=== PATIENT | male | born 1990 | race Caucasian/White ===

== ENCOUNTER 2025-01-08 07:44 | Emergency (ER) | payer SELFPAY ==
[~2025-01-08] VITALS: Ht 175.3 cm; Wt 84.1 kg
[~2025-01-08 07:44] MED LIST: NOCURR
[2025-01-08 07:46] VITALS: TEMP 97.9
[2025-01-08 08:19] LABS: BASOPHILS % (AUTO) 0.5 % (0.0-2.0); EOSINOPHILS % (AUTO) 1.7 % (1.0-6.0); HEMATOCRIT 47.4 % (41-53); HEMOGLOBIN 15.8 g/dL (13.5-17.5); LYMPHOCYTES # (AUTO) 2.3 K/uL (1.0-4.8); LYMPHOCYTES % (AUTO) 28.5 % (22.0-44.0); MEAN CORPUSCULAR HEMOGLOBIN 29.1 pg (26.0-34.0); MEAN CORPUSCULAR HGB CONC 33.4 G/dL (31.0-37.0); MEAN CORPUSCULAR VOLUME 87 fL (80-100); MONOCYTES # (AUTO) 0.6 K/uL (0.1-1.0); MONOCYTES % (AUTO) 7.8 % (2.0-9.0); NEUTROPHILS % (AUTO) 61.5 % (40.0-70.0); PLATELET COUNT (AUTO) 303 K/uL (150-450); RED BLOOD CELL COUNT(AUTO) 5.44 MIL/uL (4.50-5.90); WHITE BLOOD COUNT (AUTO) 8.1 K/uL (4.5-11.0)
[2025-01-08 08:31] LABS: ANION GAP 9 mmol/L (8-16); CALCIUM, TOTAL 8.9 mg/dL (8.8-10.5); CARBON DIOXIDE 26 mmol/L (22-29); CHLORIDE 102 mmol/L (98-107); GLOMERULAR FILTR. RATE CALC > 60 mL/min (>60); GLUCOSE,RANDOM 121 mg/dL (70-110); POTASSIUM 3.8 mmol/L (3.5-5.1); SODIUM SERUM 137 mmol/L (136-145); UREA NITROGEN, BLOOD 14 mg/dL (7-18)
[2025-01-08 08:39] LABS: TROPONIN I-HIGH SENSITIVITY Less Than 4 ng/L (<76)
[2025-01-08 09:02] VITALS: BP 117/84; PULSE 74; RESP 19; O2SAT 95
== END 2025-01-08 09:05 | disposition home or self-care (01) ==
LOC: EMS 07:45
DX: M54.12 Radiculopathy, cervical region (principal); F14.90 Cocaine use, unspecified, uncomplicated
CPT/HCPCS: 80048; 82550; 84484; 85025; 93005; 99284